=== PATIENT | female | born 1960 | race Caucasian/White ===

== ENCOUNTER 2020-01-07 22:55 | Emergency (ER) | payer OTHER ==
[~2020-01-07] VITALS: Ht 162.6 cm; Wt 82.1 kg
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
[2020-01-07 23:22] VITALS: BP 153/91
[2020-01-07] MEDS ORDERED: BACITRACIN ZINC TOPICAL OINT PACKET. TP ONE (23:45)
[2020-01-07] MEDS ORDERED: DIPH,PERTUSS(ACELL),TET VAC/PF 0.5 ML SYRINGE. VAX IM ONE (23:45)
[2020-01-07] MEDS ORDERED: oxyCODONE/APAP 5/325 1 TAB TABLET PO ONE (23:45)
[2020-01-08 00:52] LABS: BARBITURATES NEG (NEG); BENZODIAZEPINES NEG (NEG); CANNABINOIDS NEG (NEG); COCAINE NEG (NEG); METHADONE NEG (NEG); OPIATES NEG (NEG); PHENCYCLIDINE NEG (NEG)
[2020-01-08 01:02] LABS: BILIRUBIN,URINE NEG (NEG); CLARITY,URINE HAZY; COLOR,URINE YELLOW; GLUCOSE,URINE NEG (NEG); NITRITE,URINE NEG (NEG); RBC,URINE OCC /HPF (0-2); UROBILINOGEN,URINE 0.2 mg/dL (0.2 mg/dL)
[2020-01-08 01:03] LABS: BACTERIA,URINE FEW /HPF (0-FEW); SQUAMOUS EPITHELIAL CELL,UR FEW /LPF
[2020-01-08 01:06] LABS: AMPHETAMINE/METHAMPHETAMINE NEG (NEG)
[2020-01-08] MEDS ORDERED: HYDR-1179 PO (01:30)
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
== END 2020-01-08 02:09 | disposition home or self-care (01) ==
LOC: ER 22:55
DX: S40.021A Contusion of right upper arm, initial encounter (principal); W50.0XXA Accidental hit or strike by another person, initial encounter; Y93.89 Activity, other specified; Y92.89 Other specified places as the place of occurrence of the external cause; Y99.8 Other external cause status
CPT/HCPCS: 36415; 73060; 73080; 73090; 80307; 81001; 87086; 90471; 90715; 99284